=== PATIENT | female | born 1945 | race Hispanic/Latino ===

== ENCOUNTER 2017-10-29 10:25 | Outpatient (CLI) | payer MEDICARE, OTHER | END 2017-10-29 10:26 | disposition home or self-care (01) | LOC: BICMRI 10:25 | PROVIDERS: ATTEND Internal Medicine | DX: R22.0 Localized swelling, mass and lump, head (principal); G93.89 Other specified disorders of brain | CPT/HCPCS: 70551 ==

== ENCOUNTER 2018-11-22 13:04 | Emergency (ER) | payer MEDICARE, OTHER ==
[2018-11-22 13:57] LABS: #Eosinphils 0.2 thou/uL (0.0-0.7); #Lymphocytes 1.8 thou/uL (1.20-3.40); #Monocytes 0.4 thou/uL (0.11-0.59); #Neutrophils 4.7 thou/uL (1.40-6.50); %Basophils 0.4 % (0.0-1.0); %Eosinophils 2.1 % (0.0-10.0); %Lymphocytes 25.2 % (21.0-51.0); %Monocytes 4.9 % (0.0-10.0); %Neutrophils 67.4 % (42.0-75.0); Hemoglobin 13.3 g/dL (12.0-16.0); Mean Corpuscular HGB CONC 32.3 g/dL (32.0-36.0); Mean Corpuscular Hemoglobin 29.7 pg (27.0-31.0); Mean Corpuscular Volume 92.2 fL (78.0-98.0); Mean Platelet Volume 9.6 fL (7.4-10.4); Platelet Count 207 thou/uL (130-400); RBC Distribution Width 12.3 % (11.5-14.5); Red Blood Cell (RBC) Count 4.47 mill/uL (4.20-5.40)
--- NOTE | 2018-11-22 14:19 | RAD ---
CHEST ONE VIEW: HISTORY: Cough. COMPARISON: Chest radiograph from the same day. FINDINGS: Heart size is enlarged. Mild pulmonary vascular congestion. No pneumothorax. IMPRESSION: Similar examination of the chest. POS: [facility]
[2018-11-22 14:26] LABS: ALT (SGPT) 16 U/L (8-55); AST (SGOT) 16 U/L (5-34); Albumin 4.2 g/dL (3.4-4.8); Alkaline Phosphatase 169 U/L (40-150); Anion Gap 13 mmol/L (10-20); BUN (Urea Nitrogen) 21 mg/dL (9.8-20.1); Bilirubin, Total 0.4 mg/dL (0.2-1.2); Calc. Creatinine Clearance 0 mL/min (70-130); Calcium 9.5 mg/dL (7.8-10.44); Carbon Dioxide 25 mmol/L (23-31); Chloride 109 mmol/L (98-107); Estimated GFR-MDRD 73; Globulin 3.7 g/dL (2.4-3.5); Glucose 123 mg/dL (83-110); Potassium 3.8 mmol/L (3.5-5.1); Protein, Total 7.9 g/dL (6.0-8.3); Sodium 143 mmol/L (136-145)
--- NOTE | 2018-11-26 14:06 | EKG ---
Test Reason : Blood Pressure : / mmHG Vent. Rate : 053 BPM Atrial Rate : 053 BPM P-R Int : 150 ms QRS Dur : 084 ms QT Int : 444 ms P-R-T Axes : 058 004 016 degrees QTc Int : 416 ms Sinus bradycardia Nonspecific T wave abnormality Abnormal ECG Confirmed by RADHA Stevens, GEMMA ([id number]), acquisition editor MILY LARES ([id number] on 11/26/2018 2:04:58 PM Referred By: Confirmed By:GEMMA GARCIA M.D.
== END 2018-11-22 15:05 | disposition home or self-care (01) ==
LOC: ERS 13:04
DX: R05 Cough (principal); I10 Essential (primary) hypertension; E78.5 Hyperlipidemia, unspecified; Z79.899 Other long term (current) drug therapy
CPT/HCPCS: 36415; 71045; 80053; 83880; 84484; 85025; 93005

== ENCOUNTER 2022-11-11 16:25 | Emergency (ER) | payer OTHER | END 2022-11-11 20:42 | disposition home or self-care (01) | LOC: ERS 16:25 | DX: S00.33XA Contusion of nose, initial encounter (principal); E11.9 Type 2 diabetes mellitus without complications; I10 Essential (primary) hypertension; E78.5 Hyperlipidemia, unspecified; Z79.899 Other long term (current) drug therapy; W01.0XXA Fall on same level from slipping, tripping and stumbling without subsequent striking against object, initial encounter | CPT/HCPCS: 70450; 71045; 72125 ==

== ENCOUNTER 2024-10-18 12:34 | Inpatient (IN) | payer OTHER, MEDICAID ==
[2024-10-18 13:59] LABS: #Basophils 0.03 10x3/uL (0.0-0.2); %Basophils 0.3 % (0.0-1.0); %Eosinophils 0.6 % (0.0-10.0); %Lymphocytes 13.9 % (21.0-51.0); %Monocytes 4.6 % (0.0-10.0); %Neutrophils 79.9 % (42.0-75.0); Hematocrit 43.6 % (36.0-47.0); Hemoglobin 14.1 g/dL (12.0-16.0); Mean Corpuscular HGB CONC 32.3 g/dL (32.0-36.0); Mean Corpuscular Hemoglobin 29.1 pg (27.0-31.0); Mean Corpuscular Volume 90.1 fL (78.0-98.0); Mean Platelet Volume 12.8 fL (7.4-10.4); Platelet Count 138 10x3/uL (130-400); RBC Distribution Width 14.2 % (11.5-14.5); Red Blood Cell (RBC) Count 4.84 mill/uL (4.20-5.40)
[2024-10-18 14:20] LABS: Troponin I Less than 0.010 ng/mL (< 0.028)
[2024-10-18 14:30] LABS: ALT (SGPT) 18 U/L (8-55); AST (SGOT) 25 U/L (5-34); Alkaline Phosphatase 196 U/L (40-110); Anion Gap 14 mmol/L (10-20); BUN (Urea Nitrogen) 16 mg/dL (9.8-20.1); Bilirubin, Total 1.1 mg/dL (0.2-1.2); Calc. Creatinine Clearance 0 mL/min (70-130); Calcium 9.2 mg/dL (7.8-10.44); Carbon Dioxide 25 mmol/L (23-31); Chloride 107 mmol/L (98-107); Estimated GFR 83; Globulin 4.3 g/dL (2.4-3.5); Glucose 114 mg/dL (83-110); Magnesium 2.1 mg/dL (1.6-2.6); Potassium 3.8 mmol/L (3.5-5.1); Protein, Total 8.3 g/dL (5.8-8.1); Sodium 142 mmol/L (136-145)
[2024-10-18] MEDS ORDERED: Dextrose 5% in Water 1,000 ML IV PRN (16:21)
[2024-10-18] MEDS ORDERED: Glucagon 1 MG/ML KIT IM PRN (16:21)
[2024-10-18] MEDS ORDERED: Dextrose 50% Abboject 50 ML SYRINGE SLOW IVP PRN (16:21)
[2024-10-18] MEDS ORDERED: Insulin Lispro 100 UNIT/ML 10 ML VIAL SC PRN ×2 (16:21)
[2024-10-18] MEDS ORDERED: Ondansetron ODT 4 MG TAB PO PRN (16:25)
[2024-10-18] MEDS ORDERED: Calcium Carbonate 500 MG ChewTAB PO PRN (16:25)
[2024-10-18] MEDS ORDERED: Senokot S 8.6-50 MG TAB PO PRN (16:25)
[2024-10-18] MEDS ORDERED: Furosemide 40 MG (4 mL) VIAL SLOW IVP SCH (16:30)
[2024-10-18] MEDS ORDERED: Furosemide 40 MG (4 mL) VIAL ONE (16:43)
[2024-10-18] MEDS ORDERED: Nitroglycerin 2% Ointment 1 INCH/1 GM Packet ONE (16:43)
[2024-10-18 17:11] LABS: Troponin I Less than 0.010 ng/mL (< 0.028)
[2024-10-18] MEDS ORDERED: hydrALAZINE 20 MG/ML VIAL ONE ×2 (17:55→18:41)
[2024-10-18 19:51] VITALS: BMI 38.2
[2024-10-18] MEDS: Enoxaparin 40 MG (0.4 mL) SYRINGE SC SCH (21:00)
[2024-10-19 05:03] LABS: #Basophils Less than 0.03 10x3/uL (0.0-0.2); %Basophils 0.3 % (0.0-1.0); %Lymphocytes 17.2 % (21.0-51.0); %Monocytes 5.6 % (0.0-10.0); %Neutrophils 75.5 % (42.0-75.0); Hematocrit 39.6 % (36.0-47.0); Hemoglobin 12.9 g/dL (12.0-16.0); Mean Corpuscular HGB CONC 32.6 g/dL (32.0-36.0); Mean Corpuscular Hemoglobin 29.3 pg (27.0-31.0); Mean Platelet Volume 12.3 fL (7.4-10.4); Platelet Count 150 10x3/uL (130-400); RBC Distribution Width 14.2 % (11.5-14.5)
[2024-10-19] MEDS: Furosemide 20 MG (2 mL) VIAL SLOW IVP SCH (05:06)
[2024-10-19 05:20] LABS: Hemoglobin A1c 6.3 % (4.0-6.0)
[2024-10-19 05:32] LABS: Anion Gap 13 mmol/L (10-20); BUN (Urea Nitrogen) 16 mg/dL (9.8-20.1); Calc. Creatinine Clearance 97 mL/min (70-130); Calcium 8.8 mg/dL (7.8-10.44); Carbon Dioxide 28 mmol/L (23-31); Chloride 105 mmol/L (98-107); Estimated GFR 88; Glucose 97 mg/dL (83-110); Potassium 3.4 mmol/L (3.5-5.1); Sodium 143 mmol/L (136-145)
[2024-10-19] MEDS: Lisinopril 20 MG TAB PO SCH (10:19)
[2024-10-19] MEDS: Enoxaparin 40 MG (0.4 mL) SYRINGE SC SCH (10:19)
[2024-10-19] MEDS: hydrALAZINE 20 MG/ML VIAL SLOW IVP PRN (11:07)
[2024-10-19] MEDS: Acetaminophen 325 MG TAB PO PRN (14:16)
[2024-10-19] MEDS: Potassium Chloride 20 MEQ TAB PO SCH (17:04)
[2024-10-20 05:26] LABS: Anion Gap 12 mmol/L (10-20); BUN (Urea Nitrogen) 24 mg/dL (9.8-20.1); Calc. Creatinine Clearance 82 mL/min (70-130); Calcium 8.9 mg/dL (7.8-10.44); Carbon Dioxide 28 mmol/L (23-31); Chloride 105 mmol/L (98-107); Estimated GFR 73; Glucose 118 mg/dL (83-110); Potassium 3.5 mmol/L (3.5-5.1); Sodium 141 mmol/L (136-145)
[2024-10-20] MEDS: Pioglitazone HCl 15 MG TAB PO SCH (08:29)
[2024-10-20] MEDS: Potassium Chloride 20 MEQ TAB PO SCH (08:29)
[2024-10-20] MEDS: Atorvastatin Calcium 10 MG TAB PO SCH (08:30)
[2024-10-20] MEDS: glipiZIDE 5 MG TAB PO SCH (08:30)
[2024-10-20] MEDS: Atenolol 50 MG TAB PO SCH (08:30)
[2024-10-20 08:33] VITALS: BP 134/68; TEMP 97.8
== END 2024-10-20 11:57 | disposition home or self-care (01) | DRG 291 ==
LOC: ERS 12:34 → OBS 15:57 → OBSVTOIN 10-19 16:33
PROVIDERS: ADMIT Family Medicine; ATTEND Family Medicine
DX: I11.0 Hypertensive heart disease with heart failure (principal); I50.33 Acute on chronic diastolic (congestive) heart failure; E78.5 Hyperlipidemia, unspecified; E11.9 Type 2 diabetes mellitus without complications; E66.9 Obesity, unspecified; F10.90 Alcohol use, unspecified, uncomplicated; I16.0 Hypertensive urgency; K21.9 Gastro-esophageal reflux disease without esophagitis; E87.6 Hypokalemia; I48.91 Unspecified atrial fibrillation; Z79.899 Other long term (current) drug therapy; Z68.37 Body mass index [BMI] 37.0-37.9, adult
CPT/HCPCS: 36415; 36416; 71045; 80048; 80053; 83036; 83735; 83880; 84484; 85025; 93005; 93306; 96372; 96374; 96375; 96376; 97139; G0378; J0360; J1650; J1940

== ENCOUNTER 2025-07-02 11:38 | Emergency (ER) | payer OTHER, MEDICARE ==
[2025-07-02 12:23] LABS: #Basophils 0.03 10x3/uL (0.0-0.2); #Eosinophils 0.07 10x3/uL (0.0-0.7); #Monocytes 0.37 10x3/uL (0.11-0.59); #Neutrophils 4.68 10x3/uL (1.40-6.50); %Basophils 0.5 % (0.0-1.0); %Eosinophils 1.1 % (0.0-10.0); %Lymphocytes 16.5 % (21.0-51.0); %Monocytes 6.0 % (0.0-10.0); %Neutrophils 75.6 % (42.0-75.0); Hematocrit 40.8 % (36.0-47.0); Hemoglobin 12.8 g/dL (12.0-16.0); Mean Corpuscular Hemoglobin 29.0 pg (27.0-31.0); Mean Corpuscular Volume 92.5 fL (78.0-98.0); Platelet Count 231 10x3/uL (130-400); Red Blood Cell (RBC) Count 4.41 mill/uL (4.20-5.40); White Blood Cell (WBC) Count 6.19 10x3/uL (4.8-10.8)
[2025-07-02 12:43] LABS: ALT (SGPT) 13 U/L (Less than 34); AST (SGOT) 20 U/L (11-34); Albumin 3.9 g/dL (3.1-4.5); Alkaline Phosphatase 135 U/L (40-110); Anion Gap 14 mmol/L (10-20); BUN (Urea Nitrogen) 25 mg/dL (9.8-20.1); Bilirubin, Total 0.8 mg/dL (0.3-1.2); Calc. Creatinine Clearance 0 mL/min (70-130); Calcium 9.6 mg/dL (7.8-10.44); Carbon Dioxide 28 mmol/L (23-31); Chloride 104 mmol/L (98-107); Globulin 3.9 g/dL (2.4-3.5); Glucose 121 mg/dL (83-110); Lipase 40 U/L (8-78); Potassium 4.2 mmol/L (3.5-5.1); Sodium 142 mmol/L (136-145)
[2025-07-02 13:15] LABS: Bacteria/HPF None Seen HPF (None Seen); CAUTI Indications for Culture Pelvic or flank pain; Glucose, Urine (Dipstick) Normal (Negative); Leukocyte Negative Leu/uL (Negative); Protein, Urine (Dipstick) Negative (Neg-Trace); RBC/HPF 0-3 HPF (0-3); Specific Gravity, Urine 1.014 (1.002-1.036); WBC/HPF 0-3 HPF (0-3)
[2025-07-02 13:17] LABS: Urine Culture Reflex No No
[2025-07-02] MEDS ORDERED: Ketorolac Tromethamine 30 MG (1 mL) VIAL ONE (15:26)
== END 2025-07-02 16:57 | disposition home or self-care (01) ==
LOC: ERS 11:38
DX: M79.18 Myalgia, other site (principal); I48.91 Unspecified atrial fibrillation; I10 Essential (primary) hypertension; E11.9 Type 2 diabetes mellitus without complications; Z79.899 Other long term (current) drug therapy
CPT/HCPCS: 71046; 80053; 81001; 83690; 83880; 84484; 85025; 93005; J1885; 36415; 96372